=== PATIENT | female | born 1945 | race Caucasian/White ===

== ENCOUNTER → 2017-10-02 | Outpatient (CLI) | payer MEDICARE, OTHER | END | disposition home or self-care (01) | LOC: CFH 09:07 | PROVIDERS: ATTEND Nurse Practitioner Family | DX: M50.120 Mid-cervical disc disorder, unspecified level (principal); M47.896 Other spondylosis, lumbar region | CPT/HCPCS: 72050; 72114 ==

== ENCOUNTER → 2017-11-06 | Outpatient (CLI) | payer MEDICARE, OTHER ==
[~2017-11-06] MED LIST: FENTANYL PF 100 MCG/2ML ONE; MIDAZOLAM 1 MG/ML, 5ML ONE
== END | disposition home or self-care (01) ==
LOC: RAD 13:20
PROVIDERS: ATTEND Nurse Practitioner Family
DX: M48.03 Spinal stenosis, cervicothoracic region (principal); M50.23 Other cervical disc displacement, cervicothoracic region; M48.061 Spinal stenosis, lumbar region without neurogenic claudication; M51.36 Other intervertebral disc degeneration, lumbar region
CPT/HCPCS: 72141; 72148; J2250; J3010; 99156; 99157